=== PATIENT | male | born 1940 | race Caucasian/White ===

== ENCOUNTER 2017-08-07 07:40 | Emergency (ER) | payer OTHER, BC ==
[~2017-08-07] VITALS: Ht 175.3 cm; Wt 86.6 kg
[~2017-08-07 07:40] MED LIST: AMLODIPINE BESYL5 MG PO; ASCORBIC ACID500 M3 PO; CARVEDILOL12.5 MG PO; CARVEDILOL3.125 MG PO; CEFAZOLIN-2 GM/100 M IV; CEFEPIME-D1 GM/50 ML IV; CEFTRIAXONE2 G1 IV; COLACE100 MG PO; COLCRYS0.6 MG PO; DOCUSATE SODIU100 MG PO; DUONEB 2.5-0.5 M3 ML AEROSOL; DUONEB 2.5-0.5 M3 ML IH; ENDOCET 5-3251 EACH PO; ENOXAPARIN40 MG/0.4 SC; FUROSEMIDE20 MG PO; FUROSEMIDE40 MG PO; HUMULIN N100 UNIT/2 SC; HUMULIN N100 UNITS/ SC; HYDROCODON-ACE1 EAC7 PO; KLOR-CON 1010 ME1 PO; KLOR-CON M1010 MEQ PO; LASIX40 MG PO; LISINOPRIL10 MG PO; LOVENOX40 MG/0.4 SC; NOVOLIN N100 UNITS/ SC; NOVOLOG PE100 UNITS/ SC; ORAZINC220 MG PO; Ocean Nasal 0.65% BOTH NARES; PERCOCET 5/31 TABLET PO; PHENADOZ25 MG PR; PHENERGAN25 MG PR; PRAVASTATIN SOD40 MG PO; ROCEPHIN2 GM/50 ML IV; SANTYL30 GM TP; TYLENOL REGULA325 MG PO; UNKNOWN MEDICATIONS; VANCOMYCIN1 GM/150 M IV; VANCOMYCIN1.25 GM/25 IV; [UNRECOGNIZED DRUG - REMARK]; [UNRECOGNIZED DRUG - REMARK]
[2017-08-07 08:38] LABS: HEMATOCRIT 39.2 % (38.0-50.0); HEMOGLOBIN 13.2 G/DL (12.5-16.6); MCH 28.8 PG (29.0-34.0); MCHC 33.7 G/DL (30.0-36.0); MCV 85.6 FL (86-99); PLATELET COUNT 101 K/uL (156-360); RED BLOOD COUNT 4.58 M/uL (4.00-5.50)
[2017-08-07 08:46] LABS: CHLORIDE 108 mEq/L (99-109); POTASSIUM 4.3 mEq/L (3.7-5.4); SODIUM 140 mEq/L (136-147)
[2017-08-07 08:48] LABS: GLUCOSE 112 mg/dL (70-99)
[2017-08-07 08:52] LABS: CREATININE 1.4 mg/dL (0.6-1.3); GFR ESTIMATE (CALCULATED) 52 mL/min/ (58.99-99999)
[2017-08-07 08:53] LABS: UREA NITROGEN (BUN) 22 mg/dL (9-23)
[2017-08-07] MEDS ORDERED: KEFLEX500 MG PO (09:07)
[2017-08-07 09:27] VITALS: BP 99/64
== END 2017-08-07 09:28 | disposition home or self-care (01) ==
LOC: EME 07:40
PROVIDERS: Nurse Practitioner Family
DX: S81.801A Unspecified open wound, right lower leg, initial encounter (principal); X58.XXXA Exposure to other specified factors, initial encounter; E11.22 Type 2 diabetes mellitus with diabetic chronic kidney disease; I12.9 Hypertensive chronic kidney disease with stage 1 through stage 4 chronic kidney disease, or unspecified chronic kidney disease; N18.9 Chronic kidney disease, unspecified; D69.6 Thrombocytopenia, unspecified; Z88.0 Allergy status to penicillin; R60.0 Localized edema; Z79.4 Long term (current) use of insulin; Z87.891 Personal history of nicotine dependence
CPT/HCPCS: 80048; 85027; 87070; 87075; 87077; 87147; 87186; 87205; 99281; 99284